=== PATIENT | female | born 1990 | race Caucasian/White ===

== ENCOUNTER 2019-02-16 03:29 | Emergency (ER) | payer OTHER ==
[~2019-02-16] VITALS: Ht 157.5 cm; Wt 80.7 kg
[2019-02-16 03:43] VITALS: BP 138/60; PULSE 106; RESP 20; Ht 157.5 cm; Wt 80.7 kg
[2019-02-16] MEDS ORDERED: LIDOCAINE/MYLANTA 40 ML BTL PO STA (06:06)
[2019-02-16] MEDS ORDERED: BELLADONNA/PHENOBARBITAL TAB PO STA (06:06)
[2019-02-16] MEDS ORDERED: GLYCERIN (ADULT) SUPP PR ONE (07:00)
[2019-02-16] MEDS ORDERED: ACET325T33 PO (07:40)
[2019-02-16] MEDS ORDERED: FAMO-96 PO (07:40)
--- NOTE | 2019-02-16 08:20 | ERD ---
ER Documentation Chief Complaint Chief Complaint abdominal pain x 1 day HPI 29-year-old female presenting with epigastric pain times 1 day. Patient states her symptoms developed after she eats greasy food. Denies vomiting. Has not taken medications for symptoms. Denies fevers. Denies changes in urination or bowel movement. Denies other medical problems. NKDA. Surgical history denies. Social history denies ROS All systems reviewed and are negative except as per history of present illness. Medications Home Meds Active Scripts Acetaminophen* (Tylenol*) 325 Mg Tablet, 2 TAB PO Q8 PRN for PAIN AND OR ELEVATED TEMP, #20 TAB Prov:MICHAEL FRIEDMAN PA-C 02/16/19 Famotidine* (Pepcid*) 20 Mg Tablet, 20 MG PO BID for 4 Days, #30 TAB Prov:MICHAEL FRIEDMAN PA-C 02/16/19 Allergies Allergies: Coded Allergies: No Known Drug Allergies (Verified Allergy, Unknown, 02/16/19) PMhx/Soc Medical and Surgical Hx: pt denies Medical Hx, pt denies Surgical Hx Hx Alcohol Use: No Hx Substance Use: No Hx Tobacco Use: No Smoking Status: Never smoker FmHx Family History: No diabetes, No coronary disease, No other Physical Exam Vitals Vital Signs Date Temp Pulse Resp B/P (MAP) Pulse Ox O2 O2 Flow FiO2 Time Delivery Rate 02/16/19 99.9 106 20 138/60 98 03:43 (86) Physical Exam GENERAL: The patient is well-appearing, well-nourished, in no acute distress HEENT: Atraumatic. Conjunctivae are pink. Pupils equal, round, and reactive to light. There is no scleral icterus. Tympanic membranes clear bilaterally. Oropharynx clear. CHEST: Clear to auscultation bilaterally. There are no rales, wheezes or rhonchi. HEART: Regular rate and rhythm. No murmurs, clicks, rubs or gallops. No S3 or S4. ABDOMEN: Normal active bowel sounds. No distention. Questionable tender palpation epigastric region with no rebound tenderness. No organomegaly Result Diagram: 02/16/19 0632 02/16/19 0632 Results 24 hrs Laboratory Tests Test 02/16/19 06:19 02/16/19 06:20 02/16/19 06:32 Urine Color YELLOW Urine Clarity CLEAR Urine pH 7.0 Urine Specific Kennard 1.014 Urine Ketones 1+ mg/dL Urine Nitrite NEGATIVE mg/dL Urine Bilirubin NEGATIVE mg/dL Urine Urobilinogen NEGATIVE mg/dL Urine Leukocyte Esterase NEGATIVE Alfonso/ul Urine Microscopic RBC 1 /HPF Urine Microscopic WBC 0 /HPF Urine Squamous Epithelial Cells FEW /HPF Urine Hemoglobin 1+ mg/dL Urine Glucose NEGATIVE mg/dL Urine Total Protein NEGATIVE mg/dl POC Beta HCG, Qualitative NEGATIVE White Blood Count 16.5 10^3/ul Red Blood Count 4.37 10^6/ul Hemoglobin 12.2 g/dl Hematocrit 37.3 % Mean Corpuscular Volume 85.4 fl Mean Corpuscular Hemoglobin 27.9 pg Mean Corpuscular 32.7 g/dl Hemoglobin Concent Red Cell Distribution Width 12.7 % Platelet Count 443 10^3/UL Mean Platelet Volume 8.9 fl Immature Granulocytes % 0.400 % Neutrophils % 86.7 % Lymphocytes % 8.9 % Monocytes % 3.6 % Eosinophils % 0.1 % Basophils % 0.3 % Nucleated Red Blood Cells % 0.0 /100WBC Immature Granulocytes # 0.070 10^3/ul Neutrophils # 14.3 10^3/ul Lymphocytes # 1.5 10^3/ul Monocytes # 0.6 10^3/ul Eosinophils # 0.0 10^3/ul Basophils # 0.1 10^3/ul Nucleated Red Blood Cells # 0.0 10^3/ul Sodium Level 141 mmol/L Potassium Level 3.6 mmol/L Chloride Level 104 mmol/L Carbon Dioxide Level 24 mmol/L Anion Gap 13 Blood Urea Nitrogen 9 mg/dl Creatinine 0.58 mg/dl Est Glomerular Filtrat > 60 mL/min Rate mL/min Glucose Level 124 mg/dl Calcium Level 9.5 mg/dl Total Bilirubin 0.2 mg/dl Direct Bilirubin 0.00 mg/dl Indirect Bilirubin 0.2 mg/dl Aspartate Amino 15 IU/L Transf (AST/SGOT) Alanine 12 IU/L Aminotransferase (ALT/SGPT) Alkaline Phosphatase 91 IU/L Total Protein 8.5 g/dl Albumin 4.6 g/dl Globulin 3.90 g/dl Albumin/Globulin Ratio 1.17 Lipase 59 U/L Current Medications Medications Dose Sig/Nadeen Start Time Status Last (Trade) Ordered Route PRN Stop Time Admin Dose Reason Admin 40 ml ONCE STAT 02/16/19 DC 02/16/19 Miscellaneous PO 06:06 06:44 Medication 02/16/19 06:07 (Gi Cocktail (2)) Belladonna/ 2 tab ONCE STAT 02/16/19 DC 02/16/19 Phenobarbital PO 06:06 06:44 () 02/16/19 06:07 Glycerin 1 supp ONCE ONCE 02/16/19 DC 02/16/19 (Glycerin ND 07:00 07:01 (Adult)) 02/16/19 07:01 Procedures/MDM DIAGNOSTIC IMAGING REPORT Patient: AIDA CHANCE : 1990 Age: 29 Sex: F MR #: [id number] DOS: 02/16/19604 Ordering MD: FRIDA FRIEDMAN PA-C Location: [facility] Room/Bed: PROCEDURE: US Abdomen. CLINICAL INDICATION: abdominal pain TECHNIQUE: Multiple real-time images were acquired of the patient's right up per quadrant abdomen and retroperitoneum utilizing a high resolution transducer. COMPARISON: None FINDINGS: The liver demonstrates normal echogenicity. The liver is normal in size and no focal solid lesions are seen. The liver measures 15.6 cm in length. The portal vein is patent with normal direction of flow. No intrahepatic biliary dilatation is seen. No gallstones are identified within the gallbladder. There is no pericholecystic fluid or gallbladder wall thickening. The common bile duct measures 3 mm in maximal dimension. The visualized portions of the pancreas are unremarkable. The tail of the pancreas is not seen. No free fluid is identified. The right kidney is normal in size, and demonstrate normal echogenicity and cortical thickness. The right kidney measures 10 cm in long dimension. There is no evidence of hydronephrosis. There are no kidney stones. RPTAT: AA IMPRESSION: Unremarkable right upper quadrant abdominal ultrasound. ER Course: GI cocktail given in ED MDM: 29-year-old female presenting with epigastric pain. Patient had normal findings on ultrasound and blood work. Patient has a history of pain after greasy and fatty foods. She may have a component of gastritis. Patient is discharged with supportive medications and told to follow-up with primary care within 1-2 days for close evaluation. Patient is told if symptoms change or worsen to return immediately to the ER. All questions answered at discharge Departure Diagnosis: Primary Impression: Epigastric pain Condition: Stable Patient Instructions: Epigastric Pain (Uncertain Cause) Referrals: [facility] YOU HAVE RECEIVED A MEDICAL SCREENING EXAM AND THE RESULTS INDICATE THAT YOU DO NOT HAVE A CONDITION THAT REQUIRES URGENT TREATMENT IN THE EMERGENCY DEPARTMENT. FURTHER EVALUATION AND TREATMENT OF YOUR CONDITION CAN WAIT UNTIL YOU ARE SEEN IN YOUR DOCTORS OFFICE WITHIN THE NEXT 1-2 DAYS. IT IS YOUR RESPONSIBILITY TO MAKE AN APPOINTMENT FOR FOLOW-UP CARE. IF YOU HAVE A PRIMARY DOCTOR --you should call your primary doctor and schedule an appointment IF YOU DO NOT HAVE A PRIMARY DOCTOR YOU CAN CALL OUR PHYSICIAN REFERRAL HOTLINE AT IF YOU CAN NOT AFFORD TO SEE A PHYSICIAN YOU CAN CHOSE FROM THE FOLLOWING [facility] [address] [facility] [address] [facility] [address] [facility] [address] [facility] [address] [facility] [facility] [address] Additional Instructions: FOLLOW UP WITH YOUR PRIMARY CARE PHYSICIAN TOMORROW.Return to this facility if you are not improving as expected. MICHAEL FRIEDMAN PA-C Feb 16, 2019 08:20
== END 2019-02-16 08:24 | disposition home or self-care (01) ==
LOC: FTE 03:29
DX: R10.13 Epigastric pain (principal)
CPT/HCPCS: 36415; 76705; 80053; 81001; 81025; 83690; 85025; Z7502; Z7610